=== PATIENT | female | born 1980 | race Caucasian/White ===

== ENCOUNTER 2018-12-17 11:48 | Outpatient (REF) | payer MEDICAID, SELFPAY ==
[2018-12-17 19:29] LABS: TSH (W/Ref FT4) 0.59 uIU/mL (0.358-3.74)
== END 2018-12-17 12:08 ==
LOC: NCHCN 11:48
PROVIDERS: PCP Nurse Practitioner; Visit Provider Nurse Practitioner
DX: R63.5 Abnormal weight gain (principal)
CPT/HCPCS: 84443

== ENCOUNTER 2019-07-25 11:35 | Emergency (ER) | payer OTHER, SELFPAY ==
--- NOTE | 2019-07-25 11:56 | DI.RAD_ITS ---
EXAM: XR FOOT RT COMPLETE INDICATION: pain, injury. COMPARISON: No exams were available for comparison TECHNIQUE: 2D digital imaging was performed. FINDINGS: There is soft tissue swelling around the lateral malleolus. There is a nondisplaced fracture of the lateral malleolus. No fracture or dislocation is seen in the foot. There is a tiny plantar calcanea l spur. IMPRESSION: Nondisplaced lateral malleolar fracture.
--- NOTE | 2019-07-25 11:59 | ED.GENADUL_ITS ---
Discharge Plan Disposition Patient Disposition: HOME Condition: Good Discharge Details Chief Complaint: Orthopedic Clinical Impression: Fibula fracture Primary Care Provider: Opal Hernandez ED Provider: Miriam Post Home Meds and New Rx's Prescriptions: No Action omeprazole 40 MG capsule,delayed release(DR/EC) 40 mg PO DAILY Qty: 30 RF: 3 cholecalciferol (vitamin D3) [Vitamin D3] 2,000 UNIT capsule 6,000 unit PO DAILY Qty: 30 RF: 4 fluoxetine 20 mg Capsule 20 mg PO DAILY RF: 0 Discharge Instructions Instructions: Leg Fracture (ED) Additional Instructions: Rest. Activities as tolerated. Elevate injury to prevent swelling. Ice to the area of discomfort for 15 min. 3-5 times daily. Motrin every 8 hours with food or Tylenol every 6 hours for soreness if needed over the counter for comfort. Followup with orthopedic doctor as discussed. Keep splint in place, DO NOT bear weight on leg. Return for any worsening or concerns sooner if needed. Referrals: Smith Stewart MD [ [facility] STAFF PHYSICIAN] - Discharge Data Discharge Date/Time-TO BE ENTERED AT DEPARTURE: 07/25/19 13:42 Medical Decision Making There is a very pleasant 39-year-old patient who presents to the ER after a slip on ice and ultimately rolled her right ankle. Patient complaining of persistent pain since injury. X-rays were ordered. X-ray reveals : oblique distal fibular fracture just proximal to the ankle joint. Garcia classification C. Recommended orthopedic surgery consult. I spoke with orthopedic surgeon, Dr. Stewart who recommended nonweightbearing, okay for fracture boot or posterior splint. Crutches. We will follow-up in the office for stress images. Patient agrees with plan of care. Plan of care was discussed. Risk of instability was discussed. Patient's preference was fracture boot. Rice encouraged. The patient was stable and requested discharge. Prior to discharge, my usual and customary return precautions were reviewed with the patient - this included follow-up instructions and reasons to return to the Emergency Department if conditions worsens, does not improve as expected, or other new concerns arise.. HPI General Date/Time Provider Initiated Documentation: 07/25/19 11:45 . HPI Narrative: 39-year-old very pleasant patient presents to the emergency room for complaints of a right ankle injury. She reports she slipped and fell and water. Patient ultimately rolled her ankle. Patient complaining of foot and ankle pain. Patient denies any knee pain or sign of proximal injury. Patient denies numbness, tingling or weakness. Patient has been ambulating with limping gait and avoiding bearing weight on leg. No open wounds. No other concerns or complaints at this time. Denies head neck or back pain. Related Data Home Medications Medication Instructions Recorded Confirmed omeprazole 40 mg PO DAILY #30 tab-cap 08/02/16 07/25/19 cholecalciferol (vitamin D3) 6,000 unit PO DAILY #30 tab 11/09/16 07/25/19 [Vitamin D3] fluoxetine 20 mg PO DAILY 07/25/19 07/25/19 Allergies Allergy/AdvReac Type Severity Reaction Status Date / Time No Known Allergies Allergy Unverified 07/25/19 11:47 General Stated Complaint: Orthopedic CANDIDO: 4 Review of Systems All systems reviewed & are unremarkable except as noted in HPI and below Constitutional Constitutional: Denies headache(s) ENT Ears, Nose, Mouth, and Throat: Denies headache(s) Musculoskeletal Musculoskeletal: Denies back pain, Denies deformity, Reports joint swelling, Reports limited range of motion, Denies numbness and Denies tingling Integumentary/Breasts Skin/Breast: Denies wounds Neurologic Neurologic: Denies headache(s), Denies numbness and Denies tingling PFSH Medical History Anxiety Chronic diarrhea Depression GERD (gastroesophageal reflux disease) Gestational diabetes Vitamin D deficiency Surgical History (Updated 06/18/18 @ 14:34 by [employer] [place]) Cholecystectomy Colonoscopy - IV Sedation Family History Father Heart disease Grandmother Diabetes Grandfather Dementia Social History Smoking/Tobacco Use Status: Former Tobacco Use Alcohol Intake: current Alcohol Intake frequency: a few times a week Drug use: Never Substance use type: does not use Do you feel safe at home: Yes Do you feel safe in your relationship?: Yes Exam Narrative Exam Narrative: CONST: Healthy appearing patient, in no acute distress. Well hydrated. Alert and alert. MUSCULOSKELETAL: Limping gait. No right knee pain with palpation motion pain with palpation. No calf pain with palpation. Achilles tendon intact. Patient with moderate lateral malleolus tenderness. No medial malleolus tenderness. Mild dorsal foot pain with palpation. Mild digit tenderness. Pulses intact distally. Flexion-extension is intact. No open wounds. SKIN: Normal. Dry. No rashes. NEURO: Alert and awake. Speech clear. PSYCH: Normal affect. Cooperative. Course Vital Signs Vital signs: Respiratory Effort Non-Labored 07/25/19 11:47 Pain Level 6 07/25/19 11:54
[2019-07-25] MEDS: Acetaminophen 500 MG TAB 1000 MG PO (12:06)
--- NOTE | 2019-07-25 12:41 | DI.RAD_ITS ---
EXAM: XR ANKLE RT COMPLETE INDICATION: pain. COMPARISON: No exams were available for comparison TECHNIQUE: 2D digital imaging was performed. FINDINGS: There is soft tissue swelling greatest around the lateral malleolus. There is a fracture extending o bliquely through lateral malleolus with minimal displacement. There may be slight widening of the an kle mortise. No talar dome defect or medial malleolar fracture is seen. There is a tiny plantar cyndi caneal spur. IMPRESSION: Lateral malleolar fracture with question of ankle mortise disruption.
--- NOTE | 2019-07-25 13:02 | DI.VRAD_ITS ---
PROCEDURE INFORMATION: Exam: XR Right Ankle Exam date and time: 07/25/2019 12:41 PM Age: 39 years old Clinical history: Other: Pain TECHNIQUE: Imaging protocol: XR Right ankle. Views: 3 or more views. COMPARISON: No relevant prior studies available. FINDINGS: Bones/joints: There is an oblique nondisplaced fracture of the distal right fibula with fracture lucency about the level of the ankle joint (Garcia C unstable). There is asymmetry of the ankle mortise with lateral widening. Soft tissues: Soft tissue swelling about the lateral ankle. IMPRESSION: 1. Oblique nondisplaced fracture of the distal right fibula above the level of the ankle joint (Garcia C), unstable. Recommend orthopedic consultation for potential ORIF and possible knee radiographs to evaluate the proximal fibula. Findings were discussed with Miriam Post at 07/25/2019 1:01 PM EST. Dictated and Authenticated by: Ministerio Morales MD. Ordering:CLAUDE Pineda MD
--- NOTE | 2019-07-25 13:05 | DI.VRAD_ITS ---
PROCEDURE INFORMATION: Exam: XR Right Foot Complete Exam date and time: 07/25/2019 12:36 PM Age: 39 years old Clinical history: Other: Pain, injury TECHNIQUE: Imaging protocol: XR Right foot. Views: 3 or more views. COMPARISON: CR - XR ANKLE RT COMPLETE 07/25/2019 12:34:14 PM FINDINGS: Bones/joints: Known nondisplaced right distal fibular acute fracture seen on concurrent right ankle radiographs (unstable). Otherwise, no acute displaced fractures of the foot. Well-corticated ossific fragment lateral to the cuboid, likely ossicle. Alignment of the foot is maintained. Joint spaces of the foot are maintained. Soft tissues: Lateral ankle soft tissue swelling as seen previously. IMPRESSION: 1. Known nondisplaced right distal fibular acute fracture above the level of the ankle joint (unstable). 2. No acute displaced fractures of the foot. 3. Well-corticated ossific fragment lateral to the cuboid, likely an ossicle; however, cannot exclude avulsion. Recommend clinical correlation to point tenderness at the lateral midfoot. 4. Lateral ankle soft tissue swelling associated with the distal right fibular fracture. Dictated and Authenticated by: Ministerio Morales MD. Ordering:CLAUDE Pineda MD
[2019-07-25 13:45] VITALS: BP 123/97; PULSE 83; RESP 22; TEMP 36.8; O2SAT 99
== END 2019-07-25 13:42 | disposition home or self-care (01) ==
PROVIDERS: Emergency Provider Physician Assistant; PCP Nurse Practitioner
DX: S82.431A Displaced oblique fracture of shaft of right fibula, initial encounter for closed fracture (principal); W01.0XXA Fall on same level from slipping, tripping and stumbling without subsequent striking against object, initial encounter
CPT/HCPCS: 27786; 73610; 73630; E0114; L4361

== ENCOUNTER 2019-08-11 11:14 | Outpatient (CLI) | payer OTHER, SELFPAY ==
--- NOTE | 2019-08-11 11:22 | DI.RAD_ITS ---
EXAM: XR ANKLE RT COMPLETE INDICATION: right ankle fracture. TECHNIQUE: 2D digital imaging was performed. FINDINGS: There has been no change in the alignment of the distal fibular fracture. No ankle mortise widening is visible. Small heel spurs are seen. No new abnormalities are identified.
== END 2019-08-11 11:34 ==
PROVIDERS: PCP Nurse Practitioner; Visit Provider Student in an Organized Health Care Education/Training Program
DX: S82.431D Displaced oblique fracture of shaft of right fibula, subsequent encounter for closed fracture with routine healing (principal); M77.31 Calcaneal spur, right foot
CPT/HCPCS: 73610

== ENCOUNTER 2019-10-18 17:26 | Inpatient (IN) | payer OTHER, MEDICAID, SELFPAY ==
--- NOTE | 2019-10-18 | DI.RAD_ITS ---
EXAM: XR ANKLE RT COMPLETE, LT FOOT AND LT TIB FIB INDICATION: previous fracture, assess healing, Pain, injury COMPARISON: XR ANKLE RT COMPLETE from 08/11/2019 XR ANKLE LT COMPLETE from 10/18/2019 TECHNIQUE: 2D digital imaging was performed. FINDINGS: There has been no change in alignment of the left distal fibular fracture. There is evidence of heal ing though the fracture line is still visualized on the current examination. No new fracture or disl ocation is present. There is mild soft tissue swelling about the ankle. IMPRESSION: Healing distal left fibular fracture.
--- NOTE | 2019-10-18 17:30 | DI.RAD_ITS ---
EXAM: XR ANKLE LT COMPLETE INDICATION: pain, injury. COMPARISON: XR ANKLE RT COMPLETE from 08/11/2019 TECHNIQUE: 2D digital imaging was performed. FINDINGS: There is a nondisplaced fracture at the articular surface of the posterior distal tibia, best appreci ated on the lateral view. There is an oblique, mildly displaced fracture involving the distal 3rd of the left tibia. This is incompletely visualized on the current examination. There is a calcaneal s pur. There is soft tissue swelling around the ankle. IMPRESSION: 1. Nondisplaced intra-articular fracture of the posterior tibia, best seen on the lateral view. 2. Fracture dislocation of the distal tibial shaft.
--- NOTE | 2019-10-18 17:30 | DI.RAD_ITS ---
EXAM: XR FOOT LT COMPLETE INDICATION: pain, injury. COMPARISON: XR FOOT RT COMPLETE from 07/25/2019 TECHNIQUE: 2D digital imaging was performed. FINDINGS: The fracture of the distal tibial shaft is incompletely imaged on the current examination. The nondi splaced intra-articular fracture of the posterior articular surface of the distal tibia is appreciate d on the lateral view. No other fracture or dislocation is appreciated. There is soft tissue swelli ng of the lower leg and ankle. IMPRESSION: Tibial fractures as described above. These are best appreciated on the x-rays of the ankle and leg.
--- NOTE | 2019-10-18 17:30 | DI.RAD_ITS ---
EXAM: XR TIB/FIB LT INDICATION: pain, injury. COMPARISON: No exams were available for comparison TECHNIQUE: 2D digital imaging was performed. FINDINGS: There is an oblique fracture at the junction of the middle and distal thirds of the left tibia. The distal fracture is posteriorly and laterally displaced. Note is also made of a nondisplaced intra-ar ticular fracture of the posterior articular surface of the distal tibia. This is best appreciated on the lateral view. There is soft tissue swelling around the leg. IMPRESSION: 1. Displaced distal left tibial shaft fracture. 2. Nondisplaced intra-articular fracture of the distal tibia.
[2019-10-18 17:31] VITALS: BP 137/84; PULSE 118; RESP 18; TEMP 36.9; O2SAT 96
--- NOTE | 2019-10-18 17:46 | W.ED.GENAD ---
Discharge Plan Disposition Patient Disposition: [facility] INPATIENT Condition: Stable Discharge Details Chief Complaint: Orthopedic Clinical Impression: Left tibial fracture Admit Date/Time: 10/18/19 19:06 Admit Provider: Smith Stewart Attending Provider: Smith Stewart Primary Care Provider: Opal Hernandez ED Provider: Miriam Post Discharge Instructions Activity:: Activity as Tolerated Equipment/Supplies:: No Equipment Needed Diet:: As Tolerated Discharge Orders Discharge Orders: Discharge Order (Routine); Ordered 10/19/19 Ordered By: Smith Stewart Discharge Data Discharge Date/Time-TO BE ENTERED AT DEPARTURE: 10/18/19 21:40 Medical Decision Making 39-year-old patient presenting after a slip and fall on ice yesterday evening. Patient with persistent limping gait. Patient denies head neck or back pain. Denies upper extremities injuries. Patient denies any right leg complaints. Patient has focal proximal fibula tenderness with palpation, ankle pain with palpation as well as swelling over the lateral malleolus. Patient does have mild tenderness of the foot with palpation proximally. Distal neurovascularly intact. Pulses intact. Patient offered Motrin and Tylenol declines at this time. Patient unfortunately recently broke her right ankle a few months ago and is quite disappointed in her fall. Patient has no other evident signs of injury or concerns. On exam patient does have notable proximal mathews pain with palpation as well as ankle malleolus tenderness. No evident Achilles injury at this time. Mild dorsal foot pain with palpation Patient does have a notable tibial fracture distal shaft with displacement and associated intra-articular fracture. Spoke with orthopedics regarding patient's fracture. Recommended surgery for repair of tibia. Offered admission to the hospital and repair tomorrow or outpatient management with repair on ; patient preference. Patient's preference is to have admission to the hospital this evening and have surgery to repair her fracture tomorrow. Patient will be kept n.p.o. after midnight. Patient offered pain medication. Patient splinted with posterior splint for stabilization of fracture. Patient has been elevated throughout her course of visit in the ER. Dr. Stewart to admit. Pt agrees with plan of care. HPI General Date/Time Provider Initiated Documentation: 10/18/19 17:38. HPI Narrative: Is a 39-year-old patient presenting to the emergency room for slip and fall. Patient was on the street and slipped rolling her left ankle. Patient denies striking head neck or back. Denies any upper extremity injuries. Denies any right leg injury. Patient presents for persistent pain, swelling of the ankle and limping gait. Injury occurred last evening. Patient has used Motrin and Tylenol without significant relief. Moderate swelling noted over the lateral malleolus. No open wounds. Patient denies numbness, tingling or weakness. Stiffness reported through the foot. Related Data Home Medications Medication Instructions Recorded Confirmed omeprazole 40 mg PO DAILY #30 tab-cap 08/02/16 10/18/19 cholecalciferol (vitamin D3) 6,000 unit PO DAILY #30 tab 11/09/16 10/18/19 [Vitamin D3] fluoxetine 20 mg PO DAILY 07/25/19 10/18/19 aspirin 325 mg PO BID 30 Days #60 tab 10/19/19 naproxen 250 - 500 mg PO BID PRN #60 tab 10/19/19 oxycodone 5 - 10 mg PO Q4H PRN #22 tab 10/19/19 Previous Rx's Medication Instructions Recorded aspirin 325 mg PO BID 30 Days #60 tab 10/19/19 naproxen 250 - 500 mg PO BID PRN #60 tab 10/19/19 oxycodone 5 - 10 mg PO Q4H PRN #22 tab 10/19/19 Allergies Allergy/AdvReac Type Severity Reaction Status Date / Time No Known Allergies Allergy Verified 09/29/19 14:18 General Stated Complaint: Orthopedic CANDIDO: 4 Review of Systems All systems reviewed & are unremarkable except as noted in HPI and below Constitutional Constitutional: Denies fatigue, Denies headache(s) and Denies malaise ENT Ears, Nose, Mouth, and Throat: Denies headache(s) and Denies neck pain Cardiovascular Cardiovascular: Denies chest pain Respiratory Respiratory: Denies cough Musculoskeletal Musculoskeletal: Denies back pain, Reports joint swelling, Denies neck pain, Denies numbness, Reports stiffness and Denies tingling Integumentary/Breasts Skin/Breast: Denies wounds Neurologic Neurologic: Denies headache(s), Denies numbness and Denies tingling Endocrine Endocrine: Denies fatigue [facility] Medical History Anxiety Chronic diarrhea Depression GERD (gastroesophageal reflux disease) Gestational diabetes Vitamin D deficiency Surgical History Cholecystectomy Colonoscopy - IV Sedation Family History Father Heart disease Grandmother Diabetes Grandfather Dementia Social History Smoking/Tobacco Use Status: Former Tobacco Use Alcohol Intake: current Alcohol Intake frequency: a few times a week Drug use: Never Substance use type: does not use Do you feel safe at home: Yes Do you feel safe in your relationship?: Yes Exam Narrative Exam Narrative: CONST: Healthy appearing patient, in no acute distress. Well hydrated. Alert and oriented. HENMT: Head nomocephalic, normal to inspection. Atraumatic. Hearing grossly normal. NECK: Normal visual inspection. FROM. Trachea midline. No Midline tenderness. CHEST: Normal insepection of the chest. MUSCULOSKELETAL: Right leg exam benign. Left leg: No hip pain with palpation, femur pain with palpation. No significant joint line tenderness of the knee. Flexion extension intact at the knee. Pain with palpation of the proximal fibula. Pain with palpation of the mid mathews and the ankle. Patient with moderate swelling over the lateral malleolus. Mild pain with palpation of the medial malleolus. Mild proximal foot tenderness with palpation. No open wounds. Pulses intact. Sensation intact distally. SKIN: Normal. Dry. No rashes. NEURO: Alert and awake. Speech clear. PSYCH: Normal affect. Cooperative. Course Vital Signs Vital signs: Vital Signs Temperature 36.9 C 10/18/19 17:31 Pulse 118 H 10/18/19 17:31 Respiratory Rate 18 10/18/19 17:31 Blood Pressure 137/84 10/18/19 17:31 Pulse Oximetry 96 10/18/19 17:31 Temperature 36.9 C 10/18/19 17:31 Temperature Source Skin 10/18/19 17:31 Pulse 118 H 10/18/19 17:31 Respiratory Rate 18 10/18/19 17:31 Respiratory Effort Non-Labored 10/18/19 17:34 Blood Pressure 137/84 10/18/19 17:31 Blood Pressure Position Sitting 10/18/19 17:31 Pulse Oximetry 96 10/18/19 17:31 Oxygen Delivery Method Room Air 10/18/19 17:31 Oxygen Flow Rate 0 10/18/19 17:31 Pain Level 8 10/18/19 17:31 Procedures Orthopedic Splinting/Casting Injury #1: Side: left Lower Extremity Injury Location: lower leg Lower Extremity Immobilizer: posterior splint
--- NOTE | 2019-10-18 18:43 | DI.VRAD_ITS ---
PROCEDURE INFORMATION: Exam: XR Left Ankle Exam date and time: 10/18/2019 5:55 PM Age: 39 years old Clinical indication: Pain; Ankle; Left TECHNIQUE: Imaging protocol: XR Left ankle. Views: 3 or more views. COMPARISON: No relevant prior studies available. FINDINGS: Bones/joints: Distal posterior tibial intra-articular nondisplaced fracture, which is n best seen on the lateral view. Fracture dislocation of the distal tibial shaft. Plantar calcaneal spur. Soft tissues: Diffuse soft tissue swelling. IMPRESSION: 1. Intra-articular posterior tibial fracture nondisplaced seen best on the lateral view. 2. Fracture dislocation distal tibial shaft. Marked soft tissue swelling. Dictated and Authenticated by: Bina Gaston MD. Ordering:CLAUDE Pineda MD
--- NOTE | 2019-10-18 18:45 | DI.VRAD_ITS ---
PROCEDURE INFORMATION: Exam: XR Left Tibia and Fibula Exam date and time: 10/18/2019 5:55 PM Age: 39 years old Clinical indication: Pain; Lower leg; Left TECHNIQUE: Imaging protocol: XR Left tibia and fibula. Views: 2 views. COMPARISON: No relevant prior studies available. FINDINGS: Bones/joints: Fracture dislocation distal tibial shaft. Known posterior intra-articular fracture of the distal tibia not appreciated as easily on these films but noted on the lateral view. Soft tissues: Marked soft tissue swelling. IMPRESSION: Fracture dislocation tibial shaft. Posterior tibial intra-articular fracture at the ankle. Dictated and Authenticated by: Bina Gaston MD. Ordering:CLAUDE Pineda MD
--- NOTE | 2019-10-18 18:46 | DI.VRAD_ITS ---
PROCEDURE INFORMATION: Exam: XR Left Foot Complete Exam date and time: 10/18/2019 6:00 PM Age: 39 years old Clinical indication: Pain; Multiple sites; Left; Patient HX: Fall TECHNIQUE: Imaging protocol: XR Left foot. Views: 3 or more views. COMPARISON: CR XR ANKLE LT COMPLETE 18/10/2019 17:53 FINDINGS: Bones/joints: Fracture distal tibia. Posterior distal intra-articular tibial fracture noted on the lateral view. Plantar calcaneal spur. Soft tissues: Marked soft tissue swelling of the leg and ankle. IMPRESSION: Fractured tibia as discussed above. Dictated and Authenticated by: Bina Gaston MD. Ordering:CLAUDE Pineda MD
[2019-10-18] MEDS: Acetaminophen 500 MG TAB 1000 MG PO (19:18)
--- NOTE | 2019-10-18 19:21 | W.PM.HP.N ---
Date of service: 10/19/19 Time of Service: 10:57 Assessment and Plan Assessment and plan (1) Fracture of tibial shaft, left, closed: Status: Acute Assessment and plan: 39F with left tibial shaft distal 1/3 displaced fracture and non-displaced posterior malleolus fracture; 2.5 months s/p Right ankle lateral malleolus fracture Pain control- multimodal NWB LLE, ED splint, ice, elevation Admission for surgery today: Left tibia IMN, possible perc fixation posterior mall fx?plan for rapid progression to full weightbearing on the operative side pending fixation XRs Right ankle to assess completeness of healing as right ankle will need to bear majority of weight going forward?results so partial healing full weightbearing okay Crutches for ambulation The risks, benefits, and alternatives were thoroughly discussed. Patient was counseled regarding pain management, expected postoperative course, and recovery timeline. All questions were answered. Informed consent was obtained. Agree and understand treatment plan. Qualifiers: Encounter type: initial encounter Fracture alignment: displaced Fracture morphology: oblique Qualified Code(s): S82.232A - Displaced oblique fracture of shaft of left tibia, initial encounter for closed fracture (2) Fracture of posterior malleolus of left tibia: Status: Acute Assessment and plan: as above Qualifiers: Encounter type: initial encounter Fracture type: closed Qualified Code(s): S82.392A - Other fracture of lower end of left tibia, initial encounter for closed fracture (3) Fracture of ankle, lateral malleolus, right, closed: Status: Acute Assessment and plan: as above Qualifiers: Encounter type: initial encounter Fracture alignment: nondisplaced Qualified Code(s): S82.64XA - Nondisplaced fracture of lateral malleolus of right fibula, initial encounter for closed fracture History of Present Illness History of Present Illness Chief Complaint: Left leg pain Narrative: Chief Complaint: Left leg pain HPI: 39-year-old female status post slip and fall on ice 2 days ago with sudden onset Left leg pain and deformity. Unable to bear weight. presented to ED last night and found to have displaced distal tibial shaft fx and nondisplaced post mal fx. Comfortable at rest. Did not hit her head; denies any LOC, CP, SOB Recent history of clinically healed right ankle non-displaced lateral mall fracture after fall at home at home during night going to bathroom on 07/25/19. Patient had significant anxiety about the ankle limiting weight bearing and participation in ROM exercises. Is recently doing much better with ROM and weight bearing relatively comfortably. prior injury: None to left; Right as above attempted treatments: splint immobilization in ER, elevation numbness/tingling: Denies prior imaging: Emergency room x-rays yesterday PMH: Anxiety, depression, GERD, vitamin D deficiency diabetes: Denies allergies: NKDA FH: non-contributory SH: hand dominance: Right occupation: Homemaker smoke cigarettes: No Review of Systems Constitutional Constitutional: Denies chills and Denies fever(s) Eyes Eyes: Denies diplopia and Denies loss of vision ENT Ears, Nose, Mouth, and Throat: Denies dental pain and Denies other (cavities) Cardiovascular Cardiovascular: Denies chest pain with activity, Denies irregular heart rhythm and Denies dyspnea Respiratory Respiratory: Denies cough and Denies dyspnea Gastrointestinal Gastrointestinal: Denies nausea and Denies vomiting Musculoskeletal Musculoskeletal: Reports as per HPI Integumentary/Breasts Skin/Breast: Denies rash and Denies wounds Neurologic Neurologic: Reports as per HPI and Denies loss of vision Psychiatric Psychiatric: Reports anxiety and Reports depression Hematologic/Lymphatic Hematologic/Lymphatic: Denies easy bleeding and Denies easy bruising Allergic/Immunologic Allergic/Immunologic: Reports as per HPI PFSH Medical History Anxiety Chronic diarrhea Depression GERD (gastroesophageal reflux disease) Gestational diabetes Vitamin D deficiency Surgical History Cholecystectomy Colonoscopy - IV Sedation Family History Father Heart disease Grandmother Diabetes Grandfather Dementia Social History Smoking/Tobacco Use Status: Former Tobacco Use Alcohol Intake: current Alcohol Intake frequency: a few times a week Drug use: Never Substance use type: does not use Do you feel safe at home: Yes Do you feel safe in your relationship?: Yes Meds Home Medications and Allergies Home Medications Medication Instructions Recorded Confirmed Type omeprazole 40 mg PO DAILY #30 tab-cap 08/02/16 10/18/19 History cholecalciferol (vitamin D3) 6,000 unit PO DAILY #30 tab 11/09/16 10/18/19 History [Vitamin D3] fluoxetine 20 mg PO DAILY 07/25/19 10/18/19 History Allergies Allergy/AdvReac Type Severity Reaction Status Date / Time No Known Allergies Allergy Verified 09/29/19 14:18 Exam Const General: cooperative, comfortable and no acute distress Orientation: alert, awake and not confused Limitations: mental status not altered and no language barrier HENMT Head: normocephalic and atraumatic Neck Neck: normal visual inspection and full ROM Resp Effort & Inspection: normal respiratory effort, able to speak in complete sentences, no audible wheezes and no grunting General: deferred Skin General skin exam: no rashes or lesions noted Neuro General: alert, awake and oriented x3 Cognition: normal cognition Speech: speech normal Extrem Other: Right leg: short leg splint in place Skin intact Deformity prominence under splint and TTP about distal tibial shaft All compartments compressible under and around splint as best testable Demonstrates active EHL, FHL, EDL, FDL SILT throughout; no paresthesias BCR No pain with passive stretch toes Left ankle: Largely nontender except milt directly lateral over fx site No edema Improved nearly full ROM Good strength Psych Appearance: grossly normal Mental Status: mental status grossly normal Speech and Movement: speech and movement normal Affect: normal affect Attitude: cooperative Results Imaging Imaging Studies: Left tib/fib XRs report and images reviewed: distal 1/3 tibial shaft displaced oblique fracture with butterfly fragment posteriorly; intact fibula Left ankle XRs report and images reviewed: non-displaced posterior malleolus distal tibia ankle fracture; no disruption to the ankle mortise or widening of medial clear space Left foot XRs report and images reviewed: negative for acute fx or dx Right ankle XRs reprot and images reviewed: progressive healing of distal fibula non-displaced fx but persistent still visable fx lines Last Vital Signs Temp 98.4 F 10/18/19 17:31 Pulse 118 H 10/18/19 17:31 Resp 18 10/18/19 17:31 BP 137/84 10/18/19 17:31 Pulse Ox 96 10/18/19 17:31
[2019-10-18 20:36] VITALS: BP 131/86; PULSE 94; RESP 17; TEMP 37.2; O2SAT 97
--- NOTE | 2019-10-18 20:39 | DI.VRAD_ITS ---
PROCEDURE INFORMATION: Exam: XR Right Ankle Exam date and time: 10/18/2019 8:18 PM Age: 39 years old Clinical indication: Injury or trauma; Injury history: Previous FX 07/25/19; Follow-up exam; Fracture, traumatic; Ankle; Right; Malleolus, lateral; Injury details: HX nondisplaced fracture of the lateral malleolus TECHNIQUE: Imaging protocol: XR Right ankle. Views: 3 or more views. COMPARISON: CR XR ANKLE RT COMPLETE 06/13/2019 11:22 FINDINGS: Bones/joints: Incomplete healing of distal fibula fracture compared with prior study August 2019. The distal fibula fracture line is still evident. Bone mineralization is normal. Soft tissues: Soft tissue swelling along the lateral and anterior aspect of the ankle. IMPRESSION: Healing distal fibula fracture. Fracture line is still evident. Dictated and Authenticated by: Bina Gaston MD. Ordering:KIERSTEN Mtz MD
[2019-10-18] MEDS: oxyCODONE 5 MG TAB PO ×2 (21:25→23:04)
[2019-10-18] MEDS: FLUoxetine 20 MG CAP PO (21:32)
[2019-10-18] MEDS: diphenhydrAMINE 25 MG CAP PO (23:04)
[2019-10-19] VITALS (9 sets, daily range): BP systolic 108–152; BP diastolic 67–99; PULSE 72–92; RESP 11–18; TEMP 36–36.8; O2SAT 95–98
[2019-10-19] MEDS: MORPHine 10 MG/ML VIAL IVP (02:27)
[2019-10-19] MEDS: oxyCODONE 5 MG TAB PO ×3 (04:34→17:09)
[2019-10-19] MEDS: Omeprazole 20 MG CAPCR 40 MG PO (07:53)
[2019-10-19] MEDS: ceFAZolin 2 GM/50 ML BAG IVPB (08:03)
--- NOTE | 2019-10-19 11:30 | DI.RAD_ITS ---
EXAM: XR TIB/FIB LT CLINICAL HISTORY: LEFT TIBIAL SHAFT FX. TECHNIQUE: 2D digital imaging was performed Fluoro time: 181.1 sec, 5.92 mGy COMPARISON: XR TIB/FIB LT from 10/18/2019 FINDINGS: Fluoroscopy was utilized by Dr. Stewart during the reduction and internal fixation of the distal left t ibial fracture. Images show an intramedullary chandler with screws proximally and distally transfixing th e reduced fracture. Alignment of the fracture appears anatomic. Please refer to the procedure repor t for complete details. IMPRESSION: Status post reduction and internal fixation of the distal left tibial fracture.
[2019-10-19] MEDS: Celecoxib 200 MG CAP (11:43)
[2019-10-19] MEDS: Gabapentin 300 MG CAP (11:44)
[2019-10-19] MEDS: Lactated Ringers 1,000 ML 80 ML IV ×2 (12:10→16:00)
--- NOTE | 2019-10-19 13:45 | W.NUTCONSULT ---
Date of service: 10/19/19 Time of Service: 13:45 Nutritional Consult ASSESSMENT: 39 year old female admitted with tibial fracture s/p fall. Currently NPO for surgery. BMI wnl. Not at nutritional risk at this time. MONITORING AND EVALUATION: po intake, labs, weight Time Spent in Nutritional Counseling and Treatment: 0 time spent face to face
[2019-10-19] MEDS: Bupivacaine 0.25% Pres-Free 30 ML VIAL (14:25)
[2019-10-19] MEDS: EPINEPHrine 1 MG/ML AMP pres-free (14:25)
[2019-10-19] MEDS: Hydrogen Peroxide 3% 480 ML BTL (14:30)
--- NOTE | 2019-10-19 15:15 | ROE_ITS ---
Date of service: 10/19/19 Time of Service: 15:10 Operative Note Operative Note DATE OF PROCEDURE: 10/19/19 PRE-OP DIAGNOSIS: 1. Left displaced distal 1/3 tibial shaft fractures 2. Left nondisplaced posterior malleolus ankle fracture POST-OP DIAGNOSIS: same PROCEDURE: Left tibia intramedullary nailing SURGEON: Smith Stewart LOFT WORKER APPRENTICE: Ana Price ANESTHESIA: GETA and local ESTIMATED BLOOD LOSS: 15 TOURNIQUET TIME: 0 COMPLICATIONS: None Patient was transported to: PACU Patient's condition: stable Implants: Synthes Expert Tibial Nail 10mm x 315mm with 2 proximal static locking and 2 distal static locking 5.0 mm screws Indications: Please see complete medical record for details. Procedure Description: The patient was taken to the operating room and transferred to the operating room table. Anesthesia was induced. All bony prominences were well-padded. A tourniquet was placed high on the thigh. Preoperative antibiotics were administered. The left leg was prepped and draped in the usual sterile fashion. The correct patient, procedure, and side of the procedure were all verified prior to incision. An lateral extra-articular semi-extended approach was used to localize the start point on the proximal tibia. The patella was atraumatically mobilized and retracted medially. An opening awl was used the open the proximal femur followed by insertion of the ball-tipped guidewire. Manual reduction with traction, rotation, and a bump behind leg was used to provisionally reduce the tibia fracture. The ball-tipped guidewire was advanced past the fracture and down to the level of the distal tibial physeal scar in a central position above the ankle mortise. Sequential reaming over the guidewire was performed starting with the 8.5 mm reamer and reaming up to 12 mm when appropriate chatter was obtained. Fluoroscopy was used to confirm that reaming was done with the fracture reduced. The depth gauge was used to measure implant length. An appropriately sized tibial nail was chosen and assembled to the jig on the back table. It was inserted over the guidewire and advanced to the appropriate level in the distal tibia. AP and lateral fluoroscopy confirmed maintained reduction at the fracture site and placement of the intramedullary nail proximally and distally. The guidewire was removed. Next, proximal locking was done through the jig and two 5.0 mm locking screws were placed through stab incisions from medial to lateral. Fracture site was once again reassessed and there was no need for rotational adjustment however the heel was driven using gentle blows to compress across the fracture site. Perfect circles technique was used to place 2 distal locking screws through stab incisions from medial to lateral. Final AP and lateral fluoroscopy confirmed excellent reduction of the fracture site and appropriate hardware placement. Additionally, there was no displacement, gapping or significantly sized posterior malleolus fracture so the decision was made to avoid any open or percutaneous fixation. All wounds were copiously irrigated. 25cc of 0.25% bupivacaine with epinephrine was infiltrated about all incisions. The stab incisions were closed using 3-0 nylon in horizontal mattress fashion. The lateral retinaculum was closed using 0 Vicryl in a buried interrupted fashion. Subcutaneous tissue was closed using 2-0 Vicryl in a buried interrupted fashion. This incision was also closed using 3-0 nylon in horizontal mattress fashion. All leg compartments were examined and remained soft. Xeroform was applied over the incisions and covered with dry 4 x 4 gauze and sterile soft roll. The leg was placed into an appropriately padded and well molded short leg splint. The patient awoke from anesthesia without complication and was taken to recovery room in stable fashion.
[2019-10-19] MEDS: ceFAZolin 1 GM/50 ML BAG IVPB (16:00)
--- NOTE | 2019-10-19 16:00 | IN_ITS ---
Date of service: 10/19/19 Time of Service: 16:00 PT Notes Visit Reasons: LEFT TIBIAL SHAFT FRACTURE Physical Therapy Inpatient Initial Evaluation Date: 10/19/2019 Referring Doctor: Smith Stewart MD PT Orders: PT CONSULT: Status post Ortho surgery. Precautions: Fall. Standard. WBAT on BLE. Patient Profile/Admitting Diagnosis: Patient is a 39-year-old female with a left displaced distal one third tibial shaft fracture and a left nondisplaced posterior malleolus ankle fracture status post left tibia intramedullary nailing on postoperative day 0. PMHX: Medical History Anxiety Chronic diarrhea Depression GERD (gastroesophageal reflux disease) Gestational diabetes Vitamin D deficiency Surgical History Cholecystectomy Colonoscopy - IV Sedation Social History/Home Situation: Patient lives in a private home with with two steps to enter without rails. Patient was independent with all aspects of ADLs without the need for an assistive ambulatory device nor adaptive equipment. Although she was using a pair of bilateral axillary crutches due to a fall she sustained in June of last year. Equipment Owned/DME: Bilateral axillary crutches, wheelchair Subjective: Patient states that she is very anxious about trying to move today as she still feels tingling in bilateral gluteal area and her feet. She denies headache, chest pain, dizziness throughout PT session. She reports discomfort on the left leg. Objective: General Observation: IV in left UE. Jesus Alberto wraps over splint on the left leg. Mental Status: Alert and oriented x4 Pain: 4/10 on left leg ROM: Right Upper Extremity: Shoulder Flexion WFL. Shoulder abduction WFL. Elbow flexion WFL. Wrist flexion WFL. Opening and closing of hand WFL. Left Upper Extremity: Shoulder Flexion WFL. Shoulder abduction WFL. Elbow flexion WFL. Wrist flexion WFL. Opening and closing of hand WFL. Right Lower Extremity: Hip flexion WFL. Hip abduction WFL. Knee flexion WFL. Ankle dorsiflexion WFL. Ankle plantarflexion WFL. Left Lower Extremity: Hip flexion WFL. Hip abduction WFL. Knee flexion WFL. Ankle dorsiflexion WFL. Ankle plantarflexion WFL. Strength: Right Upper Extremity: Shoulder flexors 5/5. Shoulder abductors 5/5. Elbow flexors 5/5. Elbow extensors 5/5. [employer] strong. Left Upper Extremity: Shoulder flexors 5/5. Shoulder abductors 5/5. Elbow flexors 5/5. Elbow extensors 5/5. [employer] strong. Right Lower Extremity: Hip flexors 5/5. Hip abductors 5/5. Knee flexors 5/5. Knee extensors 5/5. Ankle dorsiflexors 4/5. Ankle plantarflexors 4/5. Left Lower Extremity:Hip flexors 5/5. Hip abductors 5/5. Knee flexors 5/5. Knee extensors 3/5. Ankle dorsiflexors 3/5. Ankle plantarflexors 3/5. Sensation: Intact as to pain and pressure on bilateral lower extremities. Bed Mobility/Transfers: Rolling SBA Supine to sit SBA Sit to supine SBA Sit to stand SBA Stand to sit SBA Bed to chair SBA Chair to bed SBA Gait: Patient tolerated level surface ambulation of up to 50 feet using front wheeled walker with SBA of student PT and wheelchair follow with PT without increase in pain complaint. Patient also negotiated three 4 inch steps x2 with SBA using bilateral axillary crutches with step to gait pattern without increase in pain complaint. Balance: Static Sitting: Normal Dynamic Sitting: Normal Static Standing: Fair Dynamic Standing: air Special Tests: Mobility Limitations Standardized Measure [facility] AM-PAC 6 clicks Basic Mobility Inpatient Short Form: Raw Score: 23 CMS Score: 11% deficit Informed Consent/Education: Patient instructed in purpose of PT consult and plan of care. Assessment: Patient presenting with impaired functional mobility due to postoperative status and pain. Patient is a 39-year-old female with a left displaced distal one third tibial shaft fracture and a left nondisplaced posterior malleolus ankle fracture status post left tibia intramedullary nailing on postoperative day 0. Patient presents with clinical signs and symptoms consistent with current/admitting diagnoses that have resulted to mobility limitations, gait instability, generalized weakness, and impairment of motor control as demonstrated by the following impairment level findings: 1. Decreased strength to L LE major muscle groups 2. Impaired standing balance 3. Impaired activity tolerance Impairments are contributing to the following functional limitations: 1. Inability to safely ambulate without assistive device and physical assistance 2. Increase completion time for mobility ADL performance 3. Increased fall risk 4. Inability to negotiate steps alone safely Patient is assessed as a [id number] moderate complexity based on the following: History: Patient is a 39-year-old female with a left displaced distal one third tibial shaft fracture and a left nondisplaced posterior malleolus ankle fracture status post left tibia intramedullary nailing on postoperative day 0 with past medical history as listed above Examination: Demonstrable impairment in strength, balance, and range of motion with underlying impairments and functional limitations as documented above Presentation:Evolving Decision Makin moderate complexity Goals: N/A. Patient is evaluation only. Plan of Care/Treatment Plan: N/A. Patient is evaluation only. Session today consisted of PT evaluation as well as education and training of patient and regarding safe strategies for functional mobility performance, stair negotiation, and use of assistive ambulatory device. Patient will benefit from the use of a front wheeled walker DISCHARGE RECOMMENDATIONS: May benefit from skilled physical therapy services according to orthopedic surgeon's timeline recommendations. Patient will highly benefit from the use of a front wheeled walker to reduce fall risk at home. airline managerial supervisor notified about equipment recommendation. TREATMENT CODE/TIME: 9716 2 x 30 minutes, 9753 0 x 15 minutes beginning at 16:00 p.m. Thank you very much for this referral. Giovanna Ramos PT, DPT, CLT [facility] [place], [place]
--- NOTE | 2019-10-19 17:40 | W.PM.DS.N ---
Date of service: 10/19/19 Time of Service: 17:38 DS: Diagnosis Discharge Diagnosis (1) Fracture of tibial shaft, left, closed: Status: Acute (2) Fracture of posterior malleolus of left tibia: Status: Acute (3) Fracture of ankle, lateral malleolus, right, closed: Status: Acute Discharge Plan Disposition Patient Disposition: HOME Condition: Stable Discharge Details Chief Complaint: Orthopedic Reason For Visit: LEFT TIBIAL SHAFT FRACTURE Admit Date/Time: 10/18/19 19:06 Admit Provider: Smith Stewart Attending Provider: Smith Stewart Primary Care Provider: Opal Hernandez ED Provider: [facility] Hospital Course Hospital Course: Admitted with acute left displaced tibial shaft fracture. Surgery 10/19/2019 left tibia intramedullary nailing. Postoperative course uncomplicated. Home Meds and New Rx's Prescriptions: New naproxen 250 mg tablet 250 - 500 mg PO BID PRN (Reason: Moderate pain or swelling) Qty: 60 RF: 0 aspirin 325 mg tablet,delayed release (DR/EC) 325 mg PO BID 30 Days Qty: 60 RF: 0 oxycodone 5 mg tablet 5 - 10 mg PO Q4H PRN (Reason: moderate to severe pain) Qty: 22 RF: 0 Continued omeprazole 40 MG capsule,delayed release(DR/EC) 40 mg PO DAILY Qty: 30 RF: 3 cholecalciferol (vitamin D3) [Vitamin D3] 2,000 UNIT capsule 6,000 unit PO DAILY Qty: 30 RF: 4 fluoxetine 20 mg Capsule 20 mg PO DAILY RF: 0 Discharge Instructions Additional Instructions: Surgery: Left tibia intramedullary nailing Activity: Weightbearing as tolerated with crutches or walker in splint at all times. Recommend elevation to minimize swelling and pain. A physical therapy prescription will be provided separately in the office at follow-up if needed. Prescriptions: Aspirin 325 mg take 1 twice day to prevent a blood clot for 30 days starting the morning after surgery Naproxen 250 mg take 1-2 every 12 hours with a meal as needed for moderate pain Oxycodone 5 mg take 1-2 every 4-6 hours as needed for severe pain You may use [id number] Tylenol (acetaminophen) as needed for mild pain. These pain medications may be taken all at once or in different combinations as needed. Also, recommend Colace (docusate) as a stool softener as surgery and pain medicine cause constipation. Dressings: Leave splint and dressing in place until follow-up. Keep clean and dry at all times. Follow-up: [address] Stewart at [facility]. Please call to confirm appt. Please call the office during business hours with any questions or concerns. Let us know right away if you develop any redness, drainage, fevers, chest pain, or trouble breathing. Do not drink alcohol or drive for at least 24 hours after anesthesia. Referrals: Smith Stewart MD [ [facility] STAFF PHYSICIAN] - Activity:: Activity as Tolerated Equipment/Supplies:: No Equipment Needed Diet:: As Tolerated Discharge Orders Discharge Orders: Discharge Order (Routine); Ordered 10/19/19 Ordered By: Smith Stewart DS: Summary Status at Discharge Functional status at discharge: uses cane/walker Overall status at discharge: patient is progressing back to baseline Mental Status: mental status grossly normal Speech and Movement: speech and movement normal Mood: anxious mood Affect: anxious affect Exam Narrative Exam Narrative: Resting comfortably. No complaints. Const General: cooperative and no acute distress Orientation: alert, awake and not confused Limitations: mental status not altered and no language barrier Resp Effort & Inspection: normal respiratory effort, able to speak in complete sentences, no audible wheezes and no grunting General: deferred Skin General skin exam: no rashes or lesions noted Neuro General: alert, awake and oriented x3 Cognition: normal cognition Speech: speech normal Extrem Other: Left lower extremity: Splint clean dry intact. BCR all exposed toes. Demonstrates active motor toes. No pain with passive stretch. No signs DVT, infection, or compartment syndrome. Psych Appearance: grossly normal Mental Status: mental status grossly normal Speech and Movement: speech and movement normal Mood: anxious mood Affect: anxious affect Attitude: cooperative DS: Data Vitals/I&O Vitals and I&O: Vital Signs Temperature 98.1 F 10/19/19 15:18 Temperature Source Tympanic 10/19/19 07:56 Pulse 78 10/19/19 15:18 Pulse Rhythm Regular 10/19/19 09:04 Respiratory Rate 11 L 10/19/19 15:18 Respiratory Effort Non-Labored 10/19/19 09:04 Respiratory Depth Normal 10/19/19 09:04 Respiratory Pattern Normal 10/19/19 09:04 Blood Pressure 121/75 10/19/19 15:18 Blood Pressure Position Sitting 10/18/19 17:31 Pulse Oximetry 97 10/19/19 15:18 Respiratory End-tidal CO2 39 10/19/19 15:18 Oxygen Delivery Method Room Air 10/19/19 15:18 Oxygen Flow Rate 2 10/19/19 15:18 Pain Level 0 10/19/19 15:18 Intake & Output 10/18/19 10/19/19 10/19/19 23:59 11:59 23:59 Intake Total 700 / 700 Output Total 1200 / 1200 700 / 700 Balance -1200 / -1200 -700 / 0 700 / 0 Weight 150 lb 11.081 oz Intake: IV 700 / 700 Output: Urine 1200 / 1200 700 / 700 Other: Urine Color Yellow Dark Angelique Urine Appearance Clear Clear Urine Odor None Emesis Description None Voiding Methods Toilet Toilet [facility] Medical History Anxiety Chronic diarrhea Depression GERD (gastroesophageal reflux disease) Gestational diabetes Vitamin D deficiency Surgical History Cholecystectomy Colonoscopy - IV Sedation Family History Father Heart disease Grandmother Diabetes Grandfather Dementia Social History Smoking/Tobacco Use Status: Former Tobacco Use Alcohol Intake: current Alcohol Intake frequency: a few times a week Drug use: Never Substance use type: does not use Do you feel safe at home: Yes Do you feel safe in your relationship?: Yes
[2019-10-19] MEDS: Naproxen 500 MG TAB PO (18:22)
--- NOTE | 2019-10-19 18:52 | INITIAL_ITS ---
- If Service Date Differs Date of service: 10/19/19 Time of Service: 18:52 Care Management Initial Assess REASON FOR HOSPITALIZATION:: Fracture of tibial shaft PAST MEDICAL HISTORY/PAST SURGICAL HISTORY:: Medical History . Anxiety. Chronic diarrhea. Depression. GERD (gastroesophageal reflux disease). Gestational diabetes. Vitamin D deficiency. Surgical History . Cholecystectomy. Colonoscopy - IV Sedation PREVIOUS FUNCTIONAL STATUS/SOCIAL/FAMILY SUPPORTS:: Yuli lives in a one level, single family home in [place] with her Ramon and their children. She does not currrently work outside of the home as she has 4 children to care for. At baseline Yuli is independent and drives however she recently fractured her other leg so has been restricted in her activities for the past few months. CURRENT FUNCTIONAL STATUS:: Yuli was sitting up in bed when CM met with her. She was pleasant and engaged readily in conversation. She shared that she had surgery today and might be discharged later. ADVANCE DIRECTIVES:: no Has patient been provided with information about the portal?: Yes Did the patient sign up for the portal?: No CODE STATUS:: Full Code INSURANCE COVERAGE / FINANCIAL ISSUES:: Medicaid. [employer] CURRENT HOME/COMMUNITY SERVICES/EQUIPMENT:: wheelchair, scooter and crutches PRIMARY CARE PHYSICIAN:: Opal Hernandez POTENTIAL DISCHARGE NEEDS:: Follow up with surgeon and discharge plan of care. PATIENT/FAMILY EDUCATION NEEDS:: Discharge plan, limitations and Ask Me Three. TRANSPORTATION:: via private vehicle with PLAN:: Yuli will be discharged home with no additional services. She will follow up with her surgeon and plan of care. She will transport via private vehicle with .
--- NOTE | 2019-10-19 19:13 | PDOC.CMDIS ---
- If Service Date Differs Date of service: 10/19/19 Time of Service: 19:13 LACE Index Scoring Tool - Questions: Length of Stay (in days): 1 Acuity (Admit via E.D.?): Yes E.D. Visits: 2 - Answers: Total Score: 6 Risk of Readmission: Low Risk Care Management Discharge Reason for Hospitalization: Fracture of tibial shaft Discharge Plan: Yuli will be discharged home with no additional services. She will follow up with her surgeon and plan of care. She will transport via private vehicle with . Patient/Family Education Needs: Discharge plan, limitations and Ask Me Three.
== END 2019-10-19 18:58 | disposition home or self-care (01) | DRG 494 ==
LOC: ER 19:45 → MS 20:31
PROVIDERS: Admitting Provider Student in an Organized Health Care Education/Training Program; Emergency Provider Physician Assistant; PCP Nurse Practitioner; Visit Provider Student in an Organized Health Care Education/Training Program
PROC: 0QSH06Z Reposition Left Tibia with Intramedullary Internal Fixation Device, Open Approach (ICD-10-PCS; CPT 27759; principal; 2019-10-19 11:45)
DX: S82.232A Displaced oblique fracture of shaft of left tibia, initial encounter for closed fracture (principal); S82.392A Other fracture of lower end of left tibia, initial encounter for closed fracture; W00.0XXA Fall on same level due to ice and snow, initial encounter; Z23 Encounter for immunization; F32.9 Major depressive disorder, single episode, unspecified; K21.9 Gastro-esophageal reflux disease without esophagitis
CPT/HCPCS: 27759; 29505; 76000; 97162; 97530; 99223; 99285; NC; 73590; 73610; 73630; J0131; J0171; J0690; J2250; J2270; J2405; J3010

== ENCOUNTER 2019-11-03 14:01 | Outpatient (CLI) | payer OTHER, MEDICAID, SELFPAY ==
--- NOTE | 2019-11-03 14:00 | DI.RAD_ITS ---
EXAM: XR TIB/FIB LT INDICATION: FOLLOW UP. COMPARISON: No exams were available for comparison TECHNIQUE: 2D digital imaging was performed. FINDINGS: Again noted is an intramedullary chandler through the tibia for fracture fixation. There as been no bearden e in fracture or hardware alignment. The knee and ankle are unremarkable as visualized. DATA REPOSITORY: RADIATION DOSE DELIVERED:
== END 2019-11-03 14:21 ==
PROVIDERS: PCP Nurse Practitioner; Visit Provider Student in an Organized Health Care Education/Training Program
DX: S82.232D Displaced oblique fracture of shaft of left tibia, subsequent encounter for closed fracture with routine healing (principal)
CPT/HCPCS: 73590

== ENCOUNTER 2020-10-12 11:37 | Outpatient (CLI) | payer BC, MEDICAID, SELFPAY ==
--- NOTE | 2020-10-12 11:40 | DI.RAD_ITS ---
EXAM: XR TIB/FIB LT INDICATION: f/u. COMPARISON: CR XR TIB/FIB LT from 11/03/2019 TECHNIQUE: 2D digital imaging was performed. FINDINGS: There has been no change in the intramedullary chandler through the tibia. There has been continued heali ng of the distal tibial fracture. The knee and ankle are unremarkable. DATA REPOSITORY: RADIATION DOSE DELIVERED:
== END 2020-10-12 11:38 | disposition home or self-care (01) ==
LOC: DIORS 11:38
PROVIDERS: PCP Nurse Practitioner; Visit Provider Student in an Organized Health Care Education/Training Program
DX: S82.392A Other fracture of lower end of left tibia, initial encounter for closed fracture (principal)
CPT/HCPCS: 73590

== ENCOUNTER 2020-11-03 09:19 | Day surgery (SDC) | payer BC, MEDICAID, SELFPAY ==
[2020-11-03 09:39] VITALS: BP 147/103; PULSE 90; RESP 16; TEMP 36.5; O2SAT 98
[2020-11-03] MEDS: Lactated Ringers 1,000 ML 100 ML IV (10:12)
[2020-11-03] MEDS: ceFAZolin 2 GM/50 ML BAG IVPB (10:17)
--- NOTE | 2020-11-03 11:29 | DI.RAD_ITS ---
EXAM: XR TIB/FIB LT CLINICAL HISTORY: left hardware removal TECHNIQUE: 2D and realtime digital imaging was performed. CONTRAST MATERIAL: Refer to procedure report. COMPARISON: CR XR TIB/FIB LT from 10/12/2020 FINDINGS: Fluoroscopy was provided for Dr. Stewart during the performance of a hardware removal from the left lo wer extremity. Please refer to the procedure report for complete details. Fluoro time: 25.7 seconds IMPRESSION: RADIATION DOSE DELIVERED:
--- NOTE | 2020-11-03 11:49 | PDOC.DSDIS_ITS ---
Discharge Plan Disposition Patient Disposition: HOME Condition: Stable Discharge Details Reason For Visit: Left leg surgery Attending Provider: Smith Stewart Primary Care Provider: Opal Hernandez Home Meds and New Rx's Prescriptions: New aspirin 81 mg tablet,delayed release (DR/EC) 81 mg PO DAILY 14 Days Qty: 14 RF: 0 naproxen 250 mg tablet 250 - 500 mg PO BID PRN (Reason: Moderate pain or swelling) Qty: 30 RF: 0 tramadol 50 mg Tablet 50 mg PO Q8H PRN PRN (Reason: severe pain) Qty: 7 RF: 0 Continued omeprazole 40 MG capsule,delayed release(DR/EC) 40 mg PO DAILY Qty: 30 RF: 3 cholecalciferol (vitamin D3) [Vitamin D3] 2,000 UNIT capsule 6,000 unit PO DAILY Qty: 30 RF: 4 fluoxetine 20 mg Capsule 20 mg PO DAILY RF: 0 vitamin B complex Capsule 1 cap PO DAILY RF: 0 No Action loperamide [Imodium] 2 mg Capsule 2 mg PO QID PRNRF: 0 Discharge Instructions Additional Instructions: Surgery: Left tibia removal of hardware Activity: Advance to full weightbearing as tolerated as comfort allows. Crutches may be used for a few days if needed. Recommend ice and elevation to minimize swelling and discomfort. Please perform daily range of motion exercises to the knee and ankle to prevent stiffness. Prescriptions: Aspirin 81 mg take 1 daily to prevent a blood clot for 2 weeks Naproxen 250 mg take 1-2 every 12 hours with a meal as needed for moderate pain Tramadol 50 mg take 1 every 8 hours as needed for severe pain You may use [id number] Tylenol (acetaminophen) as needed for mild pain. These pain medications may be taken all at once or in different combinations as needed. Also, recommend Colace (docusate) as a stool softener as surgery and pain medicine cause constipation. Dressings: Leave dressing in place for 5 days. May then remove and leave open to air or cover incisions with Band-Aids. May shower after 7 days. Follow-up: 10-[address] Stewart (11/16/20 at 1:45 PM) Let us know right away if you develop any redness, drainage, fevers, chest pain, or trouble breathing. Do not drink alcohol or drive for at least 24 hours after anesthesia. Please call the office during business hours with any questions or concerns. Referrals: Smith Stewart MD [ [facility] STAFF PHYSICIAN] - Discharge Orders Discharge Orders: Discharge Order (Routine); Ordered 11/03/20 Ordered By: Smith Stewart DS: Diagnosis Discharge Diagnosis (1) Painful orthopaedic hardware: Status: Acute (2) Fracture of tibial shaft, left, closed: Status: Acute
--- NOTE | 2020-11-03 11:55 | ROE_ITS ---
Date of service: 11/03/20 Time of Service: 10:30 Operative Note Operative Note DATE OF PROCEDURE: 11/03/20 PRE-OP DIAGNOSIS: Left tibia symptomatic hardware POST-OP DIAGNOSIS: same PROCEDURE: Left tibia removal of deep hardware, CPT # 78788: 4 locking screw from tibial nail SURGEON: Smith Stewart SUPERVISOR INDUSTRIAL GARMENT: None None ANESTHESIA TYPE: Local By Surgeon and General:No Airway Refer to Anesthesia Record ESTIMATED BLOOD LOSS: 5 PATHOLOGY: none sent TOURNIQUET TIME: 0 COMPLICATIONS: None Patient was transported to: PACU Patient's condition: stable Indications: Please see complete medical record for details. Procedure Description: In the operating room, general anesthesia was induced. The patient was positioned supine on the operating room table. All bony prominences were well-padded. Preoperative antibiotics were administered. The site was prepped and draped in the usual sterile fashion. The correct patient, procedure, and side of the procedure were all verified prior to incision. Prior surgical stab incisions were confirmed to localize to the 4 screw heads to proximally to distally that were going to be removed. 30 cc of 1% epinephrine containing lidocaine was distributed equally proximally distally. A knife was used to open the 2 proximal incisions followed by spreading down to the screw heads, which were minimally prominent. Both screw heads were covered with periosteum that was cleared with a knife and curette. Locations confirm using fluoroscopic guidance. The correct screwdriver was placed into the more distal proximal screw, malleted gently, and the screw removed without difficulty in entirety. This was then repeated for the more proximal proximal screw. Similarly, distally sharp and ice was used to open the prior stab incisions and spreading used to expose the location of the screw heads, which were also r elatively flush with bone covered periosteum. Fluoroscopic guidance was used to confirm appropriate location prior to incising the periosteum and clearing it with curette from both screw heads. The correct screwdriver was then used more distally, secured into the screw head, and the more distal screw remove entirety without difficulty. This was repeated for the more proximal distal screw. All 4 screw sites were then curetted to encourage healing. Final fluoroscopic images confirmed appropriate, complete screw removal. A lateral image of the ankle confirmed appropriate nondisplaced anatomic healing of the posterior malleolus fracture. All 4 surgical sites were copiously irrigated. Hemostasis was readily achieved. The incisions were closed using 3-0 Monocryl in a buried interrupted fashion. Steri-Strips were applied over the incision followed by Xeroform, dry 4 x 4 gauze, and Tegaderm dressings. The foot ankle and leg was wrapped gently Jesus Alberto compressive bandage The patient awoke from anesthesia without complication and was transferred to the recovery room in a stable condition.
[2020-11-03 12:05] VITALS: BP 117/76; PULSE 83; RESP 18; TEMP 36.5; O2SAT 97
== END 2020-11-03 13:00 | disposition home or self-care (01) ==
LOC: SUR 09:20
PROVIDERS: PCP Nurse Practitioner; Visit Provider Student in an Organized Health Care Education/Training Program
PROC: (CPT 20680; principal; 2020-11-03 10:30)
DX: T84.84XA Pain due to internal orthopedic prosthetic devices, implants and grafts, initial encounter (principal); S82.232D Displaced oblique fracture of shaft of left tibia, subsequent encounter for closed fracture with routine healing
CPT/HCPCS: 20680; 76000; 81025; 73590; J0690; J1885; J2250; J2405; J2704

== ENCOUNTER 2022-07-17 16:52 | Outpatient (REF) | payer BC, MEDICAID, SELFPAY ==
[2022-07-17 18:58] LABS: Abs Immature Grans 0.04 10^3/uL (0.0-0.06); Absolute Basophil Count 0.06 10^3/uL (0.0-0.2); Absolute Eosinophil Count 0.09 10^3/uL (0.0-0.7); Absolute Lymphocyte Count 1.77 10^3/uL (1.2-3.4); Absolute Monocyte Count 0.35 10^3/uL (0.1-0.8); Absolute Neutrophil Count 3.29 10^3/uL (1.2-6.7); Basophils % 1.1; Eosinophils % 1.6; HCT 40.9 % (36.0-46.0); HGB 13.5 g/dL (11.2-15.7); Immature Grans % 0.7; Lymphocytes % 31.6; MCH 28.1 pg (27.0-33.0); MCV 85 fL (80-95); MPV 10.1 fL (8.0-11.0); Monocytes % 6.3; Neutrophils % 58.7; Platelet Count 190 10^3/uL (130-400); RDW-SD 40.6 fL
[2022-07-17 19:21] LABS: ALT 128 U/L (14-59); AST 109 U/L (15-37); Albumin 4.1 g/dL (3.4-5.0); Alkaline Phosphatase 92 U/L (46-116); BUN 11 mg/dL (7-18); Bilirubin, Total 0.4 mg/dL (0.2-1.0); CREATININE 0.8 mg/dL (0.55-1.02); Calcium 9.6 mg/dL (8.5-10.1); Calculated LDL 181 mg/dL (<100); Chloride 101 mmol/L (98-107); Cholesterol 278 mg/dL (<200); Estimated GFR 94.87 (mL/min/1.73m2); Glucose 111 mg/dL (74-106); HDL Cholesterol 66 mg/dL (40-60); Sodium 138 mmol/L (136-145); TSH (W/Ref FT4) 0.96 uIU/mL (0.36-3.74); Total Protein 8.3 g/dL (6.4-8.2); Triglyceride 156 mg/dL (<150)
[2022-07-17 19:41] LABS: Hemoglobin A1C 6.1 % (<5.7)
== END 2022-07-17 16:53 | disposition home or self-care (01) ==
LOC: NCHCN 16:52
PROVIDERS: PCP Nurse Practitioner; Visit Provider Nurse Practitioner Family
DX: R63.5 Abnormal weight gain (principal); K21.9 Gastro-esophageal reflux disease without esophagitis; F41.8 Other specified anxiety disorders; E66.8 Other obesity; Z13.220 Encounter for screening for lipoid disorders; Z13.1 Encounter for screening for diabetes mellitus
CPT/HCPCS: 80053; 80061; 83036; 84443; 85025

== ENCOUNTER 2023-05-23 17:24 | Outpatient (REF) | payer BC, MEDICAID, SELFPAY ==
--- NOTE | 2023-05-23 11:45 | PAPFT_PTH ---
PATIENT: Yuli Perez LOC: NCN #:[id number] AGE/SX: 43/F ROOM: RE05/23/[address]: RASHIDA WALTER : 1980 BED: DIS: 05/23/2023 SPEC #: [id number] RECD: 05/23/23 18:25 STATUS: YESENIA REQ #: [id number] FILI: 05/23/23 11:[address]: Rashida Walter DEPT: [facility] Cytology RECD BY: Kimberley Lora ENTERED: 05/23/23 18:26 SP TYPE: PAPFT OTHR DR: Opal Hernandez Tissues: 1 - CX/ENDOCX FOR PAP SMEARS Procedures: PAP THIN PREP/UVM Screening Comments: [id number] (UNSATISFACTORY FOR EVALUATION)
[2023-05-23 18:11] LABS: Abs Immature Grans 0.04 10^3/uL (0.0-0.06); Absolute Basophil Count 0.07 10^3/uL (0.0-0.2); Absolute Eosinophil Count 0.05 10^3/uL (0.0-0.7); Absolute Lymphocyte Count 1.67 10^3/uL (1.2-3.4); Absolute Monocyte Count 0.34 10^3/uL (0.1-0.8); Absolute Neutrophil Count 2.98 10^3/uL (1.2-6.7); Basophils % 1.4; HGB 13.5 g/dL (11.2-15.7); Immature Grans % 0.8; Lymphocytes % 32.4; MCH 28.5 pg (27.0-33.0); MCHC 32.9 % (32.0-36.0); MCV 87 fL (80-95); Monocytes % 6.6; Neutrophils % 57.8; Platelet Count 206 10^3/uL (130-400); RBC 4.73 10^6/uL (3.93-5.22); RDW 13.4 % (11.7-14.6); RDW-SD 42.9 fL; WBC 5.15 10^3/uL (4.4-10.8)
[2023-05-23 18:34] LABS: ALT 136 U/L (14-59); AST 186 U/L (15-37); Albumin 4.1 g/dL (3.4-5.0); Alkaline Phosphatase 115 U/L (46-116); Anion Gap 10.8 mmol/L (3-11); BUN 5 mg/dL (7-18); Bilirubin, Total 0.4 mg/dL (0.2-1.0); CO2 27.2 mmol/L (21.0-32.0); CREATININE 0.6 mg/dL (0.55-1.02); Calcium 9.9 mg/dL (8.5-10.1); Chloride 99 mmol/L (98-107); Estimated GFR 114.86 (mL/min/1.73m2); Glucose 101 mg/dL (74-106); Potassium 4.1 mmol/L (3.5-5.1); Sodium 137 mmol/L (136-145); Total Protein 9.1 g/dL (6.4-8.2)
[2023-05-23 18:55] LABS: Hemoglobin A1C 5.6 % (<5.7)
[2023-05-23 19:05] LABS: FREE T4 0.68 ng/dL (0.76-1.46); TSH 2.08 uIU/mL (0.36-3.74)
== END 2023-05-23 17:25 | disposition home or self-care (01) ==
LOC: NCHCN 17:24
PROVIDERS: PCP Nurse Practitioner; Visit Provider Nurse Practitioner Family
DX: Z00.00 Encounter for general adult medical examination without abnormal findings (principal); Z12.4 Encounter for screening for malignant neoplasm of cervix; Z11.51 Encounter for screening for human papillomavirus (HPV); R87.615 Unsatisfactory cytologic smear of cervix
CPT/HCPCS: 80053; 88142; 83036; 84439; 84443; 85025

== ENCOUNTER 2023-08-15 16:25 | Outpatient (REF) | payer BC, MEDICAID, SELFPAY ==
--- NOTE | 2023-08-15 14:30 | PAPFT_PTH ---
PATIENT: Yuli Perez LOC: [facility] U#:[id number] AGE/SX: 43/F ROOM: RE08/15/[address]: Yue Gomez DO : 1980 BED: DIS: 08/15/2023 SPEC #: [id number] RECD: 08/15/23 18:16 STATUS: YESENIA REQ #: [id number] FILI: 08/15/23 14:[address]: Yue Gomez DEPT: REPLACED BY [facility] Cytology RECD BY: Kimberley Lora ENTERED: 08/15/23 18:16 SP TYPE: PAPFT OTHR DR: Opal Hernandez Tissues: 1 - CX/ENDOCX FOR PAP SMEARS Procedures: PAP THIN PREP/UVM Screening HPV DNA PROBE Comments: [id number]
== END 2023-08-15 16:26 | disposition home or self-care (01) ==
LOC: LBN 16:25
PROVIDERS: PCP Nurse Practitioner; Visit Provider Obstetrics & Gynecology
DX: Z12.4 Encounter for screening for malignant neoplasm of cervix (principal)
CPT/HCPCS: 88142; 87624

== ENCOUNTER → 2023-09-04 01:37 | Outpatient (CLI) | payer BC, MEDICAID, SELFPAY ==
--- NOTE | 2023-09-04 15:00 | DI.MAMMO_ITS ---
Exam(s) MAMMO SCREENING EXAM: MAMMO SCREENING CLINICAL HISTORY: screening TECHNIQUE: Mammograms were interpreted according to the usual protocol including computer analysis w [employer] CAD system, tomosynthesis and C-view imaging. COMPARISON: None. Baseline examination. FINDINGS: The breasts are composed of heterogeneously dense fibroglandular densities, Breast Density category C . Right breast: 3 circumscribed nodules, 1 in the immediate subareolar region, another in the central t issue and the other in the upper outer quadrant. No suspicious calcifications. Ultrasound recommend ed for further evaluation. Left breast: Status suspicious masses or suspicious microcalcifications. No skin thickening or abnormal axillary lymph nodes are seen. IMPRESSION: Right breast category 0, additional evaluation with ultrasound is recommended for multiple areas of n odularity. Breast Density Category C, heterogeneously Dense. The mammogram demonstrates the patient's breast tissue is dense. Dense breast tissue is very common a nd is not abnormal but dense breast tissue can make it harder to find cancer on a mammogram. Also, de nse breast tissue may increase breast cancer risk. This information about the result of the mammogram report was provided to the patient to raise their awareness. Use this report when you speak with the patient about their risks for breast cancer, which includes their family history. At that time, you may recommend additional screening tests (Ultrasound or MRI) as they might be useful based on their r isk. A negative radiographic report should not delay biopsy if a dominant or clinically suspicious mass is present. Up to ten percent of cancers are not identified on mammography. A negative report may reinforce clinical impression. Adenosis and dense breasts may obscure an underlying neoplasm. False positive reports average 6 to 10%.
== END ==
PROVIDERS: PCP Nurse Practitioner; Visit Provider Obstetrics & Gynecology
DX: Z12.31 Encounter for screening mammogram for malignant neoplasm of breast (principal)
CPT/HCPCS: 77063; 77067

== ENCOUNTER 2023-11-25 11:51 | Outpatient (REF) | payer BC, MEDICAID, SELFPAY ==
[2023-11-25 15:43] LABS: Abs Immature Grans 0.02 10^3/uL (0.0-0.06); Absolute Basophil Count 0.06 10^3/uL (0.0-0.2); Absolute Eosinophil Count 0.11 10^3/uL (0.0-0.7); Absolute Lymphocyte Count 1.57 10^3/uL (1.2-3.4); Absolute Monocyte Count 0.35 10^3/uL (0.1-0.8); Absolute Neutrophil Count 2.25 10^3/uL (1.2-6.7); Basophils % 1.4; Eosinophils % 2.5; HCT 39.7 % (36.0-46.0); HGB 13.5 g/dL (11.2-15.7); Immature Grans % 0.5; MCH 30.4 pg (27.0-33.0); MCV 89 fL (80-95); MPV 10.3 fL (8.0-11.0); Neutrophils % 51.6; Platelet Count 173 10^3/uL (130-400); RBC 4.44 10^6/uL (3.93-5.22); RDW 12.7 % (11.7-14.6); RDW-SD 41.7 fL; WBC 4.36 10^3/uL (4.4-10.8)
[2023-11-25 16:48] LABS: ALT 103 U/L (14-59); AST 127 U/L (15-37); Albumin 3.8 g/dL (3.4-5.0); Alkaline Phosphatase 97 U/L (46-116); Anion Gap 11.8 mmol/L (3-11); BUN 7 mg/dL (7-18); Bilirubin, Total 0.3 mg/dL (0.2-1.0); CO2 24.2 mmol/L (21.0-32.0); CREATININE 0.5 mg/dL (0.55-1.02); Calcium 8.9 mg/dL (8.5-10.1); Calculated LDL 139 mg/dL (<100); Chloride 101 mmol/L (98-107); Cholesterol 267 mg/dL (<200); Estimated GFR 120.02 (mL/min/1.73m2); Glucose 101 mg/dL (74-106); HDL Cholesterol 64 mg/dL (40-60); Sodium 137 mmol/L (136-145); TSH (W/Ref FT4) 1.44 uIU/mL (0.36-3.74); Total Protein 7.7 g/dL (6.4-8.2); Triglyceride 322 mg/dL (<150)
[2023-11-25 17:42] LABS: Hemoglobin A1C 5.6 % (<5.7)
== END 2023-11-25 11:52 | disposition home or self-care (01) ==
LOC: NCHCN 11:51
PROVIDERS: Visit Provider Nurse Practitioner Family
DX: R73.03 Prediabetes (principal); I10 Essential (primary) hypertension; R74.9 Abnormal serum enzyme level, unspecified; E88.810 Metabolic syndrome; R79.89 Other specified abnormal findings of blood chemistry
CPT/HCPCS: 80053; 80061; 83036; 84443; 85025

== ENCOUNTER → 2024-03-03 01:48 | Outpatient (CLI) | payer BC, MEDICAID, SELFPAY ==
--- NOTE | 2024-03-03 | DI.MAMMO_ITS ---
Exam(s) MG MAMMO DIAGNOSTIC UNI US BREAST RT COMPLETE EXAM: MG MAMMO DIAGNOSTIC UNI-RIGHT AND COMPLETE RIGHT BREAST ULTRASOUND CLINICAL HISTORY: 6 MO F/U, F/U RT FIBROADENOMAS AND CYSTS,R92.8. TECHNIQUE: Unilateral RIGHT BREAST CC AND MLO mammographic images were obtained with 3D tomosynthesi s technique and utilizing computer aided detection (CAD). COMPLETE RIGHT BREAST ULTRASOUND performed including all 4 quadrants as well as the right axilla. COMPARISON: Prior baseline mammogram of September 2023 was reviewed. Also reviewed prior ultrasound o f September 2023., The most recent being . FINDINGS: DIAGNOSTIC RIGHT BREAST MAMMOGRAM: The previously described nodular densities in the right breast are again noted and appear unchanged. Other smaller nodular densities are also again noted. There are no new spiculated masses and there are no malignant-appearing microcalcification groups in the right breast. No significant architectural distortion or skin thickening-traction. COMPLETE RIGHT BREAST ULTRASOUND: Previously described small microcysts are again noted. There also 2 solid lobulated nodules again noted. At the 8 o'clock position there is a 1.8 x 1.2 cm wider than taller lobulated solid nodule with neutr al and slightly increased through transmission. Unchanged in size and configuration from ultrasound examination of September 2023. Probably fibroadenoma At the 9 o'clock position there is a similar but smaller slightly lobulated nodule which exhibits a s mall hyperechoic focus which is most probably a small internal calcification. This nodule measures 1 .0 x 0.8 cm exhibits neutral and slightly increased through transmission. Probably another fibroaden jumana. Scanning of the right axilla is negative for significant adenopathy. IMPRESSION: Two nodules on the mammogram correspond to solid lobulated nodules on the ultrasound which are probab ly fibroadenomas. Ultrasound-guided biopsy of these nodules is recommended. The patient was informed of the findings and follow-up recommendations by myself prior to leaving the department today. Also discussed by myself by phone with her provider today. BI-RADS Category 4 - Suspicious Abnormality: Biopsy should be considered Breast Density - Category C - Heterogeneously dense Breast density Category C or D implies that the patient has dense breast tissue. Dense breast tissue can make it harder to find cancer on a mammogram. Dense breast tissue is also associated with an incr eased risk of breast cancer. This information about the result of the mammogram report was provided to the patient to raise their awareness. Use this report when you speak with the patient about their risks for breast cancer, which includes their family history. At that time, you may recommend additional screening tests (Ultrasoun d or MRI) as these tests may add significant information. A negative radiographic report should not delay biopsy if a dominant or clinically suspicious mass is present. Up to ten percent of cancers are not identified on mammography. A negative report may reinforce clinical impression. Adenosis and dense breasts may obscure an underlying neoplasm. False positive reports average 6 to 10%. Patient will receive a letter notifying them of these results.
== END ==
PROVIDERS: Visit Provider Obstetrics & Gynecology
DX: R92.8 Other abnormal and inconclusive findings on diagnostic imaging of breast (principal)
CPT/HCPCS: 76642; 77061; 77065; G0279

== ENCOUNTER 2024-05-08 17:52 | Outpatient (REF) | payer BC, MEDICAID, SELFPAY ==
[2024-05-08 18:55] LABS: Hemoglobin A1C 6.3 % (<5.7)
[2024-05-08 19:04] LABS: ALT 160 U/L (14-59); AST 177 U/L (15-37); Albumin 3.4 g/dL (3.4-5.0); Alkaline Phosphatase 146 U/L (46-116); Anion Gap 10.2 mmol/L (3-11); BUN 7 mg/dL (7-18); Bilirubin, Total 0.39 mg/dL (0.2-1.0); CO2 27.8 mmol/L (21.0-32.0); CREATININE 0.6 mg/dL (0.55-1.02); Chloride 100 mmol/L (98-107); Estimated GFR 114.15 (mL/min/1.73m2); Glucose 99 mg/dL (74-106); Potassium 4.5 mmol/L (3.5-5.1); Sodium 138 mmol/L (136-145); Total Protein 7.8 g/dL (6.4-8.2); Vitamin B12 1015 pg/mL (193-986); Vitamin D 25 Total 42.6 ng/mL (30-100)
== END 2024-05-08 17:53 | disposition home or self-care (01) ==
LOC: NCHCN 17:52
PROVIDERS: Visit Provider Nurse Practitioner Family
DX: R74.01 Elevation of levels of liver transaminase levels (principal); E55.9 Vitamin D deficiency, unspecified; R73.03 Prediabetes; E53.8 Deficiency of other specified B group vitamins
CPT/HCPCS: 80053; 82306; 82607; 83036

== ENCOUNTER 2024-07-09 21:48 | Outpatient (REF) | payer BC, MEDICAID, SELFPAY | END 2024-07-09 21:49 | disposition home or self-care (01) | LOC: LBN 21:48 | PROVIDERS: Visit Provider Physician Assistant Medical | DX: J02.9 Acute pharyngitis, unspecified (principal) | CPT/HCPCS: 87077; 87070 ==

== ENCOUNTER 2024-08-21 12:34 | Outpatient (REF) | payer BC, MEDICAID, SELFPAY ==
[2024-08-21 15:28] LABS: Abs Immature Grans 0.03 10^3/uL (0.0-0.06); Absolute Basophil Count 0.08 10^3/uL (0.0-0.2); Absolute Eosinophil Count 0.08 10^3/uL (0.0-0.7); Absolute Lymphocyte Count 1.66 10^3/uL (1.2-3.4); Absolute Monocyte Count 0.35 10^3/uL (0.1-0.8); Absolute Neutrophil Count 3.95 10^3/uL (1.2-6.7); Basophils % 1.3 %; Eosinophils % 1.3 %; HCT 41.9 % (36.0-46.0); HGB 14.2 g/dL (11.2-15.7); Immature Grans % 0.5 %; MCH 30.2 pg (27.0-33.0); MCHC 33.9 % (32.0-36.0); MCV 89 fL (80-95); Monocytes % 5.7 %; Neutrophils % 64.2 %; Platelet Count 178 10^3/uL (130-400); RDW 12.8 % (11.7-14.6); WBC 6.15 10^3/uL (4.4-10.8)
[2024-08-21 16:23] LABS: ALT 77 U/L (14-59); AST 112 U/L (15-37); Albumin 3.8 g/dL (3.4-5.0); Alkaline Phosphatase 105 U/L (46-116); Anion Gap 10.2 mmol/L (3-11); BUN 5 mg/dL (7-18); Bilirubin, Total 0.43 mg/dL (0.2-1.0); CO2 25.8 mmol/L (21.0-32.0); CREATININE 0.7 mg/dL (0.55-1.02); Chloride 101 mmol/L (98-107); Estimated GFR 109.98 (mL/min/1.73m2); Glucose 112 mg/dL (74-106); Sodium 137 mmol/L (136-145); Total Protein 8.2 g/dL (6.4-8.2); Vitamin B12 446 pg/mL (193-986); Vitamin D 25 Total 31.4 ng/mL (30-100)
== END 2024-08-21 12:35 | disposition home or self-care (01) ==
LOC: NCHCN 12:34
PROVIDERS: Visit Provider Nurse Practitioner Family
DX: R74.01 Elevation of levels of liver transaminase levels (principal); E53.8 Deficiency of other specified B group vitamins; I10 Essential (primary) hypertension; E55.9 Vitamin D deficiency, unspecified
CPT/HCPCS: 80053; 82306; 82607; 85025

== ENCOUNTER 2025-08-09 19:08 | Outpatient (REF) | payer MEDICAID, SELFPAY ==
[2025-08-09 21:51] LABS: HCT 42.5 % (36.0-46.0); HGB 14.7 g/dL (11.2-15.7); MCH 31.5 pg (27.0-33.0); MCHC 34.6 % (32.0-36.0); MCV 91 fL (80-95); MPV 10.0 fL (8.0-11.0); Platelet Count 136 10^3/uL (130-400); RBC 4.67 10^6/uL (3.93-5.22); RDW 12.8 % (11.7-14.6); RDW-SD 42.5 fL; WBC 3.76 10^3/uL (4.4-10.8)
[2025-08-09 22:08] LABS: Vitamin B12 409 pg/mL (211-911); Vitamin D 25 Total 34 ng/mL (30-100)
[2025-08-09 22:09] LABS: Hemoglobin A1C 5.1 % (<5.7)
[2025-08-09 22:10] LABS: ALT 169 U/L (10-49); AST 333 U/L (<34); Albumin 4.6 g/dL (3.2-5.0); Alkaline Phosphatase 116 U/L (46-116); Anion Gap 10.8 mmol/L (3-11); BUN 8 mg/dL (9-23); Bilirubin, Total 0.70 mg/dL (0.2-1.2); CO2 25.2 mmol/L (20.0-31.0); Calcium 9.6 mg/dL (8.3-10.6); Chloride 102 mmol/L (98-107); GGT 629 U/L (<38); Glucose 100 mg/dL (74-106); Potassium 3.9 mmol/L (3.5-5.1); Sodium 138 mmol/L (136-145); Total Protein 8.1 g/dL (5.7-8.2)
== END 2025-08-09 19:09 | disposition home or self-care (01) ==
LOC: NCHCN 19:08
PROVIDERS: Visit Provider Nurse Practitioner Family
DX: R73.03 Prediabetes (principal); E66.9 Obesity, unspecified; E88.810 Metabolic syndrome; E55.9 Vitamin D deficiency, unspecified; R74.01 Elevation of levels of liver transaminase levels; Z90.49 Acquired absence of other specified parts of digestive tract; F10.20 Alcohol dependence, uncomplicated; E53.8 Deficiency of other specified B group vitamins
CPT/HCPCS: 80053; 82306; 85027; 82607; 82977; 83036